=== PATIENT | male | born 1990 | race Caucasian/White ===

== ENCOUNTER 2018-10-21 03:34 | Emergency (ER) | payer SELFPAY ==
[~2018-10-21] VITALS: Ht 193 cm; Wt 117.9 kg
--- NOTE | 2018-10-21 03:42 | NUR ---
[facility] POLICE DEPARTMENT CALLED INQUIRING ON CURRENT PATIENT, STATES OFFICER IS EN ROUTE TO INTERVIEW PATIENT
[2018-10-21] MEDS ORDERED: TETANUS/DIPHTHERIA TOX ADULT 0.5 ML SYR IM ONE (04:00)
--- NOTE | 2018-10-21 04:10 | NUR ---
LAC TO L MIDDLE FINGER SOAKED WITH NS AND BETADINE X15 MINUTES, THEN DRESSED WITH WET TO DRY NS STERILE 4X4. WOUND TO L LOWER LATERAL LEG DRESSED WITH WET TO DRY NS SOAKED STERILE 4X4, KERLIX ROLL GAUZE, COBAN. TOLERATED WELL. Addendum: 10/21/18 at 0625 by GENE L 4TH FINGER SOAKED
--- NOTE | 2018-10-21 04:14 | NUR ---
[place] [employer] OFFICER HERE.
[2018-10-21] MEDS ORDERED: BUPIVACAINE HCL 0.25% 10ML MPF VIAL INJ ONE (04:23)
[2018-10-21] MEDS ORDERED: LIDOCAINE 1% W/EPINEPHRINE 20 ML VIAL INJ ONE (04:30)
[2018-10-21] MEDS ORDERED: BUPIVACAINE 0.25%/EPI 30ML SDV INJ ONE (04:30)
--- NOTE | 2018-10-21 04:31 | Diagnostic Imaging Report ---
EXAM: LOWER LEG LEFT DATE: 10/21/2018 3:44 AM INDICATION: Injury COMPARISON: None FINDINGS: No fracture or subluxation. Ankle mortise symmetric with no abnormality talar dome. IMPRESSION: No acute osseous finding. No distinct radiopaque foreign body. Signed by: Dr. Dallas Irving MD on 10/21/2018 4:27 AM
--- NOTE | 2018-10-21 04:31 | Diagnostic Imaging Report ---
EXAM: HAND 3+ VIEWS LEFT DATE: 10/21/2018 3:44 AM INDICATION: Injury COMPARISON: None FINDINGS: Soft tissue injury and bandage material ring finger. No displaced fracture or radiopaque foreign body identified. Nondisplaced tuft fracture possible. IMPRESSION: As above. Signed by: Dr. Dallas Irving MD on 10/21/2018 4:28 AM
--- NOTE | 2018-10-21 05:10 | Diagnostic Imaging Report ---
EXAM: WRIST COMPLETE RIGHT DATE: 10/21/2018 4:38 AM INDICATION: Injury COMPARISON: None FINDINGS: No fracture or subluxation. Carpal alignment intact. No radiopaque foreign body. IMPRESSION: No acute findings in the wrist. Signed by: Dr. Dallas Irving MD on 10/21/2018 5:07 AM
--- NOTE | 2018-10-21 05:15 | Diagnostic Imaging Report ---
EXAM: HAND 3+ VIEWS RIGHT DATE: 10/21/2018 4:38 AM INDICATION: Trauma COMPARISON: None FINDINGS: On the lateral view only there is a questionable fracture seen along the dorsum of the distal carpus. This is not seen in other views of the hand or wrist. No significant degenerative change. No radiopaque foreign body. IMPRESSION: Questionable fracture lucency along the dorsum of the distal carpus seen on lateral view of hand only. Correlation for location of pain. Soft tissue swelling along the dorsal MCP region with no definite fracture in this location. Signed by: Dr. Dallas Irving MD on 10/21/2018 5:12 AM
[2018-10-21] MEDS ORDERED: LIDOCAINE HCL 1% LOCAL INJ 20 ML VIAL ONE (05:17)
--- NOTE | 2018-10-21 05:24 | NUR ---
DIGITAL BLOCK DONE PER MD TO LEFT MIDDLE FINGER, LIDO W EPI TO WOUND L LOWER LAT LEG, 2 LAYER CLOSURE, INTERNAL WITH VICRYL THEN STAPLED, CLEANSED WOUND WITH NS, ADAPTIC, TELFA, KERLIX AND COBAN, TOLERATED WELL, WORKING ON L MIDDLE FINGER AT THIS TIME
[2018-10-21] MEDS ORDERED: LIDOCAINE HCL 1% LOCAL INJ 20 ML VIAL INJ ONE (05:30)
[2018-10-21] MEDS ORDERED: NEOMYCIN/POLYMYX/BACITR OINT 0.9 GM PKT ONE (06:04)
[2018-10-21] MEDS ORDERED: HYDROCODONE/APAP 10MG-325MG TAB PO STA (06:13)
[2018-10-21] MEDS ORDERED: HYDROCODONE/APAP 10MG-325MG TAB ONE (06:15)
[2018-10-21] MEDS ORDERED: NEOMYCIN/POLYMYX/BACITR OINT 0.9 GM PKT TOP STA (06:22)
--- NOTE | 2018-10-21 06:25 | NUR ---
FINISHED CLOSING L 4TH FINGER LACERATION, CLEANSED WITH NS, DRESSED WITH NEOSPORIN OINTMENT, ADAPTIC, TELFA, 2" CONFORM AND COBAN. NOW WORKING ON R MIDDLE FINGER PROX KNUCKLE.
--- NOTE | 2018-10-21 06:25 | NUR ---
WORKING ON L 4TH FINGER
--- NOTE | 2018-10-21 07:00 | NUR ---
FITTED FOR CRUTCHES, INST ON USE WITH RETURN DEMO. 3 INCH MATTEO WRAP TO R WRIST
== END 2018-10-21 06:59 | disposition home or self-care (01) ==
LOC: ER 03:34
DX: S61.215A Laceration without foreign body of left ring finger without damage to nail, initial encounter (principal); S61.411A Laceration without foreign body of right hand, initial encounter; S81.812A Laceration without foreign body, left lower leg, initial encounter; W26.0XXA Contact with knife, initial encounter
CPT/HCPCS: 12001; 12032; 13132; 73110; 73130 ×2; 73590; 90471; 90714; 99283; J2001